=== PATIENT | female | born 1975 | race Caucasian/White ===

== ENCOUNTER 2017-04-23 12:47 | Emergency (ER) | payer OTHER ==
--- NOTE | 2017-04-23 13:40 | XRAY Report ---
EXAM: CHEST RADIOGRAPHY EXAM DATE: 04/23/2017 01:08 PM. CLINICAL HISTORY: Cough. COMPARISON: None. TECHNIQUE: 2 views. FINDINGS: Lungs/Pleura: No focal opacities evident. No pleural effusion. No pneumothorax. Normal volumes. Mediastinum: Heart and mediastinal contours are unremarkable. Other: None. IMPRESSION: Normal 2-view chest radiography. [facility] Referring Provider Line: [phone] SITE ID: [id number]
[2017-04-23] MEDS ORDERED: DEXAMETHASONE 10 MG/ML VIAL PO STA (15:11)
[2017-04-23] MEDS ORDERED: ALBUTEROL NEB 2.5 MG/3 ML INH STA (15:11)
--- NOTE | 2017-04-23 15:20 | ED Physician Documentation ---
PD HPI URI - Stated complaint Stated Complaint: FLU LIKE SYMPTONS - Chief complaint Chief Complaint: Resp - History obtained from History obtained from: Patient, Family - History of Present Illness Timing - onset: How many days ago (4) Timing duration: Days (4) Timing details: Gradual onset Pain level max: 6 Pain level now: 5 Associated symptoms: Fever (subjective), Chills, Sweats, Nasal congestion, Rhinorrhea, Dry cough, Chest pain (R sided with coughing) Contributing factors: Sick contact (mother with same) Improves by: Rest Worsened by: Breathing, Other (coughing) Recently seen: Not recently seen - Additional information Additional information: did receive flu vaccine this year. Review of Systems Ten Systems: 10 systems reviewed and negative Nose: reports: Rhinorrhea / runny nose, Congestion Respiratory: reports: Cough. 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, Other - Present Medications Home Medications: Ambulatory Orders Medication Instructions Recorded Confirmed Duloxetine HCl [Cymbalta] 90 mg PO DAILY 08/12/13 11/19/15 Estrogens, Conjugated [Premarin] 0.625 mg PO DAILY 08/12/13 11/19/15 Prazosin HCl [Minipress] 1 mg ORAL DAILY 08/12/13 11/19/15 Simvastatin 20 mg PO DAILY 08/12/13 11/19/15 Multivitamin [Multi-Vitamin Daily] 1 each PO DAILY 02/25/14 11/19/15 Omeprazole [PriLOSEC] 20 mg PO DAILY 02/25/14 11/19/15 Oxybutynin [Ditropan] 5 mg PO DAILY 02/25/14 11/19/15 Celecoxib [CeleBREX] 200 mg PO BID 01/08/16 01/08/16 Cetirizine [ZyrTEC] 10 mg PO DAILY 01/08/16 01/08/16 Gabapentin 1 tab PO DAILY 01/08/16 01/08/16 Methocarbamol [Robaxin] 500 mg PO Q6H PRN #25 tablet 01/08/16 Albuterol Sulf [Ventolin Hfa 1 - 2 puffs INH Q4HR PRN #1 inhaler 04/23/17 Inhaler] Benzonatate [Tessalon Perle] 100 - 200 mg PO TID PRN #30 capsule 04/23/17 Meloxicam [Mobic] 7.5 mg PO BID PRN #20 tablet 04/23/17 - Allergies Allergies/Adverse Reactions: Allergies Allergy/AdvReac Type Severity Reaction Status Date / Time Sulfa (Sulfonamide Allergy Severe Rash Verified 11/19/15 09:54 Antibiotics) oxycodone Allergy Itching Verified 11/19/15 09:54 sulfamethoxazole Allergy Hives Verified 11/19/15 09:54 [From ] trimethoprim [From ] Allergy Hives Verified 11/19/15 09:54 - Social History Does the pt smoke?: No Smoking Status: Never smoker Does the pt drink ETOH?: Yes Does the pt have substance abuse?: No - Immunizations Immunizations are current?: Yes - POLST Patient has POLST: No PD ED PE NORMAL - Vitals Vital signs reviewed: Yes - General General: Alert and oriented X 3, No acute distress, Well developed/nourished - HEENT HEENT: PERRL, Ears normal, Moist mucous membranes, Pharynx benign - Neck Neck: Supple, no meningeal sign, No adenopathy - Cardiac Cardiac: RRR, Strong equal pulses - Respiratory Respiratory: No respiratory distress, Other (decreased breath sounds bilaterally.) - Abdomen Abdomen: Soft, Non tender, Non distended - Derm Derm: Warm and dry, No rash - Extremities Extremities: No edema, No calf tenderness / cord - Neuro Neuro: Alert and oriented X 3 - Psych Psych: Normal mood, Normal affect Results - Vitals Vitals: Vital Signs - 24 hr 04/23/17 04/23/17 04/23/17 12:50 15:30 15:58 Temperature 36.4 C L 36.8 C Heart Rate 105 H 104 H 98 Respiratory 18 18 18 Rate Blood Pressure 125/84 H 127/70 O2 Saturation 97 96 Oxygen O2 Source Room air - Rads (name of study) cxr Radiology: Prelim report reviewed, EMP read contemporaneously, See rad report ( normal) PD MEDICAL DECISION MAKING - ED course Complexity details: reviewed results, re-evaluated patient, considered differential, d/w patient ED course: Patient is a 41-year-old female who presents to the emergency department with what appears to be a viral syndrome. Feels better after albuterol treatment. Will place on antitussives for home. No pneumonia on chest x-ray. No hypoxia. No respiratory distress. Will continue supportive care and follow-up with her doctor. She would be outside of the window for Tamiflu, flu testing not done at this time. This was after discussion with the patient. Patient counseled regarding signs and symptoms for which I believe and urgent re- evaluation would be necessary. Patient with good understanding of and agreement to plan and is comfortable going home at this time This document was made in part using voice recognition software. While efforts are made to proofread this document, sound alike and grammatical errors may occur. Departure - Departure Disposition: 01 Home, Self Care Clinical Impression: Viral URI with cough Condition: Good Instructions: ED Viral Syndrome Follow-Up: NADIRA GILLESPIE MD [Primary Care Provider] - Within 1 week Prescriptions: Albuterol Sulf [Ventolin Hfa Inhaler] 1 - 2 puffs INH Q4HR PRN #1 inhaler PRN Reason: Shortness Of Air/Wheezing Benzonatate [Tessalon Perle] 100 - 200 mg PO TID PRN #30 capsule PRN Reason: Cough Meloxicam [Mobic] 7.5 mg PO BID PRN #20 tablet PRN Reason: Pain Comments: Drink plenty of fluids and rest. Return if you worsen. Discharge Date/Time: 04/23/17 15:58
[2017-04-23 16:05] VITALS: BP 127/70
== END 2017-04-23 15:58 | disposition home or self-care (01) ==
LOC: ED 12:47
DX: J06.9 Acute upper respiratory infection, unspecified (principal); B97.89 Other viral agents as the cause of diseases classified elsewhere; R05 Cough; E78.00 Pure hypercholesterolemia, unspecified
CPT/HCPCS: 71046; 94640; 94664; 99283; 99284; J7613

== ENCOUNTER 2017-04-27 12:22 | Emergency (ER) | payer OTHER ==
[2017-04-27] MEDS ORDERED: SODIUM CHLORIDE 0.9% 1,000 ML IV ONE (13:21)
[2017-04-27] MEDS ORDERED: ONDANSETRON 4 MG/2 ML VIAL IVP STA (13:21)
[2017-04-27 13:36] LABS: BASOPHILS % (AUTO) 0.3 %; EOSINOPHILS # (AUTO) 0.1 10^3/uL (0.0-0.7); EOSINOPHILS % (AUTO) 1.5 %; HGB - HEMOGLOBIN 15.1 g/dL (12.0-16.0); LYMPHOCYTES # (AUTO) 3.2 10^3/uL (1.5-3.5); MEAN CORPUSCULAR HEMOGLOBIN 29.2 pg (27.0-31.0); MEAN CORPUSCULAR HGB CONC 33.7 g/dL (32.0-36.0); MEAN CORPUSCULAR VOLUME 86.4 fL (81.0-99.0); MEAN PLATELET VOLUME 8.7 fL (7.9-10.8); MONOCYTES # (AUTO) 0.5 10^3/uL (0.0-1.0); MONOCYTES % (AUTO) 5.6 %; NEUTROPHILS # (AUTO) 5.2 10^3/uL (1.5-6.6); NEUTROPHILS % (AUTO) 57.6 %; PLT - PLATELET COUNT 246 10^3/uL (130-450); RED CELL DISTRIBUTION WIDTH 11.9 % (12.0-15.0)
--- NOTE | 2017-04-27 13:38 | ED Physician Documentation ---
History of Present Illness - Stated complaint Stated Complaint: HEADACHE/NAUSEA - Chief complaint Chief Complaint: General - History obtained from History obtained from: Patient - History of Present Illness Timing: How many days ago (several) Pain level max: 5 Pain level now: 4 - Additonal information Additional information: Patient is a 41-year-old female who was seen here approximately 4 days ago for URI symptoms. She was treated with steroids and nebulizer treatment. She states that she felt really good the next 2 days, then yesterday started developing nausea and today has had nausea and epigastric pain. No vomiting. No diarrhea. Nothing makes it better or worse. She states that she feels like the drainage down the back of her throat is causing her to be nauseated. Review of Systems Constitutional: denies: Fever, Chills Ears: denies: Ear pain Nose: reports: Rhinorrhea / runny nose, Congestion Respiratory: reports: Cough GI: reports: Nausea. 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, Other - Present Medications Home Medications: Ambulatory Orders Medication Instructions Recorded Confirmed Duloxetine HCl [Cymbalta] 90 mg PO DAILY 08/12/13 11/19/15 Estrogens, Conjugated [Premarin] 0.625 mg PO DAILY 08/12/13 11/19/15 Prazosin HCl [Minipress] 1 mg ORAL DAILY 08/12/13 11/19/15 Simvastatin 20 mg PO DAILY 08/12/13 11/19/15 Multivitamin [Multi-Vitamin Daily] 1 each PO DAILY 02/25/14 11/19/15 Omeprazole [PriLOSEC] 20 mg PO DAILY 02/25/14 11/19/15 Oxybutynin [Ditropan] 5 mg PO DAILY 02/25/14 11/19/15 Celecoxib [CeleBREX] 200 mg PO BID 01/08/16 01/08/16 Cetirizine [ZyrTEC] 10 mg PO DAILY 01/08/16 01/08/16 Gabapentin 1 tab PO DAILY 01/08/16 01/08/16 Methocarbamol [Robaxin] 500 mg PO Q6H PRN #25 tablet 01/08/16 Albuterol Sulf [Ventolin Hfa 1 - 2 puffs INH Q4HR PRN #1 inhaler 04/23/17 Inhaler] Benzonatate [Tessalon Perle] 100 - 200 mg PO TID PRN #30 capsule 04/23/17 Meloxicam [Mobic] 7.5 mg PO BID PRN #20 tablet 04/23/17 Promethazine [Phenergan] 25 mg PO Q6H PRN #10 tab 04/27/17 - Allergies Allergies/Adverse Reactions: Allergies Allergy/AdvReac Type Severity Reaction Status Date / Time Sulfa (Sulfonamide Allergy Severe Rash Verified 11/19/15 09:54 Antibiotics) oxycodone Allergy Itching Verified 11/19/15 09:54 sulfamethoxazole Allergy Hives Verified 11/19/15 09:54 [From ] trimethoprim [From ] Allergy Hives Verified 11/19/15 09:54 - Social History Does the pt smoke?: No Smoking Status: Never smoker Does the pt drink ETOH?: Yes Does the pt have substance abuse?: No - Immunizations Immunizations are current?: Yes - POLST Patient has POLST: No PD ED PE NORMAL - Vitals Vital signs reviewed: Yes - General General: Alert and oriented X 3, No acute distress - HEENT HEENT: Moist mucous membranes - Neck Neck: Supple, no meningeal sign - Cardiac Cardiac: RRR - Respiratory Respiratory: No respiratory distress, Clear bilaterally - Abdomen Abdomen: Soft, Other (mild TTP epigastric without peritoneal signs) - Derm Derm: Warm and dry - Neuro Neuro: Alert and oriented X 3 - Psych Psych: Normal mood Results - Vitals Vitals: Oxygen O2 Source Room air - Labs Labs: Laboratory Tests 04/27/17 04/27/17 13:00 13:00 WBC 9.0 RBC 5.20 Hgb 15.1 Hct 44.9 MCV 86.4 MCH 29.2 MCHC 33.7 RDW 11.9 L Plt Count 246 MPV 8.7 Neut # 5.2 Lymph # 3.2 Carver # 0.5 Eos # 0.1 Baso # 0.0 Absolute Nucleated RBC 0.01 Nucleated RBC % 0.1 Sodium 138 Potassium 3.7 Chloride 101 Carbon Dioxide 29 Anion Gap 8.0 BUN 25 H Creatinine 0.7 Estimated GFR (MDRD) 92 Glucose 124 H Calcium 9.4 Total Bilirubin 0.5 AST 24 ALT 40 Alkaline Phosphatase 90 Total Protein 8.7 H Albumin 4.6 Globulin 4.1 Albumin/Globulin Ratio 1.1 Lipase 23 PD MEDICAL DECISION MAKING - ED course Complexity details: reviewed old records, reviewed results, re-evaluated patient , considered differential, d/w patient, d/w family ED course: Patient is a 41-year-old female who has nausea today, recently diagnosed with a viral syndrome. Zofran was given, but she states this normally does not help her much. Therefore we tried Phenergan which resolved her nausea. Will prescribe Phenergan for home. Abdomen is soft, nontender nondistended. Also given IV fluids. She is well-appearing, nontoxic. Patient counseled regarding signs and symptoms for which I believe and urgent re-evaluation would be necessary. Patient with good understanding of and agreement to plan and is comfortable going home at this time This document was made in part using voice recognition software. While efforts are made to proofread this document, sound alike and grammatical errors may occur. Departure - Departure Disposition: 01 Home, Self Care Clinical Impression: Nausea Condition: Good Instructions: ED Nausea Vomiting Follow-Up: NADIRA GILLESPIE MD [Primary Care Provider] - Within 3 Days Prescriptions: Promethazine [Phenergan] 25 mg PO Q6H PRN #10 tab PRN Reason: Nausea / Vomiting Comments: Drink plenty of fluids and rest. Return if you worsen. Continue your decongestants at home. Discharge Date/Time: 04/27/17 15:22
[2017-04-27 13:59] LABS: ALBUMIN 4.6 g/dL (3.2-5.5); ALBUMIN/GLOBULIN RATIO 1.1 (1.0-2.2); BILIRUBIN,TOTAL 0.5 mg/dL (0.2-1.0); CALCIUM 9.4 mg/dL (8.5-10.3); CREATININE 0.7 mg/dL (0.4-1.0); TOTAL PROTEIN 8.7 g/dL (6.7-8.2)
[2017-04-27] MEDS ORDERED: PROMETHAZINE INJ 25 MG in SODIUM CHLORIDE 0.9% 50 ML IV STA (14:10)
[2017-04-27 14:32] VITALS: BP 130/79
== END 2017-04-27 15:22 | disposition home or self-care (01) ==
LOC: ED 12:22
DX: R11.0 Nausea (principal); R10.13 Epigastric pain; R09.81 Nasal congestion; E78.00 Pure hypercholesterolemia, unspecified; K21.9 Gastro-esophageal reflux disease without esophagitis; M19.90 Unspecified osteoarthritis, unspecified site; M79.7 Fibromyalgia
CPT/HCPCS: 36415; 80053; 83690; 85025; 96361; 96365; 96375; 99283; 99284; J7040